=== PATIENT | female | born 1955 | race Caucasian/White ===

== ENCOUNTER 2021-03-22 21:09 | Emergency (ER) | payer OTHER ==
[~2021-03-22] VITALS: Ht 167.6 cm; Wt 85.3 kg
[2021-03-22] MEDS ORDERED: METO50 PO (21:36)
[2021-03-22] MEDS ORDERED: LEVSOD137 PO (21:37)
[2021-03-22] MEDS ORDERED: AMIT50 PO (21:37)
[2021-03-22] MEDS ORDERED: PRAV20 PO (21:37)
[2021-03-22] MEDS ORDERED: PROM25 PO (21:38)
[2021-03-22] MEDS ORDERED: Norco 5-325 Ta1 EACH PO (21:39)
[2021-03-22 22:32] LABS: Source, Urine Clean Catch
[2021-03-22 22:35] LABS: Bilirubin, Urine Neg (Neg); Blood, Urine 5+ (Neg); Glucose Qualitative, Urine Neg (Neg); Ketones, Urine Neg (Neg); Leukocyte Esterase, Urine 1+ (Neg); Nitrite, Urine Neg (Neg); Protein, Urine 2+ (Neg); Urobilinogen, Urine NORM (Normal)
[2021-03-22 22:38] LABS: Appearance, Urine Clear (Clear); Color, Urine Yellow (P-Yellow)
[2021-03-22 22:43] LABS: Amorphous Light (0-Heavy); Bacteria Rare /hpf; Mucus Light (0-Heavy); Red Blood Cells, Urine TNTC /hpf (0-2); Squamous Epithelial Cells Rare /hpf (Few)
[2021-03-24] MEDS ORDERED: CEPH500 PO (16:01)
[2021-03-24] MEDS ORDERED: Percocet 5-3251 EACH PO (16:08)
== END 2021-03-23 01:10 | disposition home or self-care (01) ==
LOC: ER 21:09
PROVIDERS: Student in an Organized Health Care Education/Training Program
DX: N13.2 Hydronephrosis with renal and ureteral calculous obstruction (principal); Z88.2 Allergy status to sulfonamides; Z79.899 Other long term (current) drug therapy; Z87.891 Personal history of nicotine dependence
CPT/HCPCS: 74176; 81001; 96374; 99284-25; A9270; J2405

== ENCOUNTER 2021-03-24 12:45 | Emergency (ER) | payer OTHER ==
[~2021-03-24] VITALS: Ht 167.6 cm; Wt 85.3 kg
[~2021-03-24 12:45] MED LIST: AMIT50 PO; LEVSOD137 PO; METO50 PO; Norco 5-325 Ta1 EACH PO; PRAV20 PO; PROM25 PO
[2021-03-24 14:33] LABS: BASOPHILS ABSOLUTE AUTO 0.03 K/mm3 (0.00-0.23); BASOPHILS PERCENT AUTO 0 % (0-2); EOSINOPHILS ABSOLUTE AUTO 0.04 K/mm3 (0.00-0.68); EOSINOPHILS PERCENT AUTO 0 % (0-6); Hematocrit 36.9 % (33.0-51.0); Hemoglobin 12.7 g/dL (11.5-16.0); IMMATURE GRAN ABSOLUTE AUTO 0.03 K/mm3 (0.00-0.10); IMMATURE GRAN PERCENT AUTO 0 % (0-1); LYMPHOCYTES ABSOLUTE AUTO 1.86 K/mm3 (0.84-5.20); LYMPHOCYTES PERCENT AUTO 20 % (21-46); MONOCYTES ABSOLUTE AUTO 0.51 K/mm3 (0.16-1.47); MONOCYTES PERCENT AUTO 6 % (4-13); Mean Corpuscular HGB 33.3 pg (26.0-34.0); Mean Corpuscular HGB Conc 34.4 g/dL (31.5-36.5); Mean Corpuscular Volume 97 fL (80-100); Mean Platelet Volume 8.9 fL (9.1-12.4); NEUTROPHILS ABSOLUTE AUTO 6.63 K/mm3 (1.96-9.15); NEUTROPHILS PERCENT AUTO 73 % (41-73); Platelet Count 280 K/mm3 (150-400); RDW Coefficient Variation 11.8 % (11.7-14.2); RDW Standard Deviation 41.4 fL (35.1-46.3); Red Blood Cell Count 3.81 M/mm3 (3.80-5.20)
[2021-03-24 14:54] LABS: Source, Urine Clean Catch
[2021-03-24 14:56] LABS: Bilirubin, Urine Neg (Neg); Blood, Urine 5+ (Neg); Color, Urine Yellow (P-Yellow); Glucose Qualitative, Urine Neg (Neg); Ketones, Urine 1+ (Neg); Leukocyte Esterase, Urine 3+ (Neg); Nitrite, Urine Neg (Neg); Protein, Urine 2+ (Neg); Specific Gravity, Urine 1.025 (1.003-1.022); Urobilinogen, Urine NORM (Normal)
[2021-03-24 15:21] LABS: Alanine Aminotransfer (ALT/SGP 41 U/L (12-78); Albumin, Blood 3.7 g/dL (3.4-5.0); Albumin/Globulin Ratio 1.1 (0.8-1.8); Alk Phos 74 U/L (50-136); Anion Gap 7 mmol/L (6-16); Aspartate Aminotrans (AST/SGOT 26 U/L (12-37); Bilirubin, Total 0.4 mg/dL (0.1-1.0); Blood Urea Nitrogen 22 mg/dL (8-24); Bun/Creatinine Ratio 27.4 (12.0-20.0); CO2, Blood 26 mmol/L (21-32); Calcium, Blood 9.1 mg/dL (8.5-10.1); Chloride, Blood 108 mmol/L (98-108); Globulin, Blood 3.4 g/dL (2.2-4.0); Glomerular Filtration Rate >60 (60-); Glucose, Blood 90 mg/dL (70-99); Potassium, Blood 3.2 mmol/L (3.5-5.5); Sodium, Blood 141 mmol/L (136-145); Total Protein, Blood 7.1 g/dL (6.4-8.2)
[2021-03-24 15:32] LABS: Appearance, Urine Hazy (Clear)
[2021-03-24 15:33] LABS: Bacteria Few /hpf; Mucus Light (0-Heavy); Red Blood Cells, Urine 25-50 /hpf (0-2); Squamous Epithelial Cells Few /hpf (Few)
[2021-03-24] MEDS ORDERED: CEPH500 PO (16:01)
[2021-03-24] MEDS ORDERED: Percocet 5-3251 EACH PO (16:08)
== END 2021-03-24 16:55 | disposition home or self-care (01) ==
LOC: ER 12:45
PROVIDERS: Student in an Organized Health Care Education/Training Program
DX: N20.1 Calculus of ureter (principal); N39.0 Urinary tract infection, site not specified; Z79.899 Other long term (current) drug therapy; Z88.2 Allergy status to sulfonamides; Z87.442 Personal history of urinary calculi; Z87.891 Personal history of nicotine dependence
CPT/HCPCS: 80053; 81001; 85025; 87077; 87086; 87186; 96365; 96375; 99283-25; A9270; J0696; J1885; J2405; J7030

== ENCOUNTER 2021-03-26 15:31 | Emergency (ER) | payer OTHER ==
[~2021-03-26] VITALS: Ht 167.6 cm; Wt 85.3 kg
[~2021-03-26 15:31] MED LIST changes: +CEPH500 PO; +Percocet 5-3251 EACH PO
[2021-03-26 15:51] LABS: BASOPHILS ABSOLUTE AUTO 0.04 K/mm3 (0.00-0.23); BASOPHILS PERCENT AUTO 0 % (0-2); EOSINOPHILS ABSOLUTE AUTO 0.03 K/mm3 (0.00-0.68); EOSINOPHILS PERCENT AUTO 0 % (0-6); Hemoglobin 14.3 g/dL (11.5-16.0); Mean Corpuscular HGB 32.9 pg (26.0-34.0); NEUTROPHILS ABSOLUTE AUTO 6.88 K/mm3 (1.96-9.15); RDW Coefficient Variation 11.5 % (11.7-14.2); Red Blood Cell Count 4.35 M/mm3 (3.80-5.20)
[2021-03-26 16:05] LABS: Hematocrit 39.2 % (33.0-51.0); IMMATURE GRAN ABSOLUTE AUTO 0.05 K/mm3 (0.00-0.10); IMMATURE GRAN PERCENT AUTO 1 % (0-1); LYMPHOCYTES ABSOLUTE AUTO 1.48 K/mm3 (0.84-5.20); LYMPHOCYTES PERCENT AUTO 16 % (21-46); MONOCYTES PERCENT AUTO 7 % (4-13); Mean Corpuscular HGB Conc 36.5 g/dL (31.5-36.5); NEUTROPHILS PERCENT AUTO 76 % (41-73); RDW Standard Deviation 38.2 fL (35.1-46.3); White Blood Cell Count 9.08 K/mm3 (4.00-11.30)
[2021-03-26 16:06] LABS: Alanine Aminotransfer (ALT/SGP 37 U/L (12-78); Albumin, Blood 3.7 g/dL (3.4-5.0); Albumin/Globulin Ratio 0.9 (0.8-1.8); Alk Phos 86 U/L (50-136); Anion Gap 9 mmol/L (6-16); Aspartate Aminotrans (AST/SGOT 20 U/L (12-37); Bilirubin, Total 0.7 mg/dL (0.1-1.0); Blood Urea Nitrogen 16 mg/dL (8-24); Bun/Creatinine Ratio 20.5 (12.0-20.0); CO2, Blood 24 mmol/L (21-32); Calcium, Blood 9.4 mg/dL (8.5-10.1); Chloride, Blood 104 mmol/L (98-108); Creatinine, Blood 0.78 mg/dL (0.40-1.00); Globulin, Blood 3.9 g/dL (2.2-4.0); Glomerular Filtration Rate >60 (60-); Glucose, Blood 116 mg/dL (70-99); Potassium, Blood 2.8 mmol/L (3.5-5.5); Sodium, Blood 137 mmol/L (136-145); Total Protein, Blood 7.6 g/dL (6.4-8.2)
[2021-03-26 16:13] LABS: Mean Corpuscular Volume 90 fL (80-100); Platelet Count 335 K/mm3 (150-400)
[2021-03-26 17:25] LABS: Source, Urine Clean Catch
[2021-03-26 17:28] LABS: Appearance, Urine Clear (Clear); Bilirubin, Urine Neg (Neg); Blood, Urine 4+ (Neg); Color, Urine Yellow (P-Yellow); Glucose Qualitative, Urine Neg (Neg); Ketones, Urine 4+ (Neg); Leukocyte Esterase, Urine Neg (Neg); Nitrite, Urine Neg (Neg); Protein, Urine 2+ (Neg); Specific Gravity, Urine 1.025 (1.003-1.022); Urobilinogen, Urine NORM (Normal)
[2021-03-26 17:43] LABS: Red Blood Cells, Urine 25-50 /hpf (0-2); White Blood Cells, Urine 0-2 /hpf (0-5)
[2021-03-26 17:44] LABS: Bacteria Few /hpf; Hyaline Casts 0-2 /lpf (0-2); Mucus Light (0-Heavy); Squamous Epithelial Cells Few /hpf (Few)
[2021-03-26] MEDS ORDERED: Percocet 5-3251 EACH PO (20:39)
== END 2021-03-26 21:03 | disposition home or self-care (01) ==
LOC: ER 15:31
PROVIDERS: Emergency Medicine
DX: N20.1 Calculus of ureter (principal); E87.6 Hypokalemia; Z88.2 Allergy status to sulfonamides; Z79.899 Other long term (current) drug therapy; Z87.891 Personal history of nicotine dependence
CPT/HCPCS: 80053; 81001; 85025; 93005; 93010; 96365; 96366; 96375; 96376; 99284-25; A9270; J1885; J2270; J2405; J3480; J7030

== ENCOUNTER → 2021-06-06 | Outpatient (CLI) | payer OTHER | END | disposition home or self-care (01) | LOC: LAB SHORT 10:00 → LAB FUT 05-08 12:05 | DX: N20.0 Calculus of kidney (principal) | CPT/HCPCS: 81050 ==

== ENCOUNTER → 2021-10-17 | Outpatient (CLI) | payer OTHER ==
[2021-10-18 15:11] LABS: HPV 16 Negative (Negative); HPV 18 Negative (Negative); HPV OTHER HR TYPES Negative (Negative)
== END | disposition home or self-care (01) ==
LOC: LAB SHORT 18:14
PROVIDERS: Registered Nurse
DX: Z12.4 Encounter for screening for malignant neoplasm of cervix (principal)
CPT/HCPCS: 87624; 88142